=== PATIENT | female | born 1945 | race Caucasian/White ===

== ENCOUNTER 2019-05-18 07:58 | Outpatient (CLI) | payer MEDICARE, SELFPAY ==
[2019-05-18 10:09] LABS: Anion Gap 11.2 mmol/L (3-11); BUN 19 mg/dL (7-18); CO2 27.8 mmol/L (21.0-32.0); CREATININE 1.21 mg/dL (0.55-1.02); Calcium 9.2 mg/dL (8.5-10.1); Chloride 104 mmol/L (98-107); Estimated GFR 43.74 (mL/min/1.73m2); Glucose 109 mg/dL (70-100); Potassium 3.3 mmol/L (3.5-5.1); Sodium 143 mmol/L (136-145); TSH 2.66 uIU/mL (0.358-3.74)
== END 2019-05-18 08:18 ==
PROVIDERS: PCP Family Medicine; Visit Provider Family Medicine
DX: I10 Essential (primary) hypertension (principal); R53.83 Other fatigue
CPT/HCPCS: 36415; 80048; 84443

== ENCOUNTER 2019-06-20 09:59 | Outpatient (CLI) | payer MEDICARE, SELFPAY ==
[2019-06-20 11:39] LABS: CREATININE 1.27 mg/dL (0.55-1.02); Estimated GFR 41.36 (mL/min/1.73m2); Potassium 4.5 mmol/L (3.5-5.1)
== END 2019-06-20 10:19 ==
PROVIDERS: Nurse Practitioner; PCP Family Medicine; Visit Provider Family Medicine
DX: I10 Essential (primary) hypertension (principal)
CPT/HCPCS: 36415; 82565; 84132

== ENCOUNTER 2019-08-27 02:40 | Outpatient (CLI) | payer MEDICARE, SELFPAY ==
[2019-08-27 09:11] LABS: HCT 39.2 % (36.0-46.0); HGB 13.3 g/dL (12.0-15.5); Mean Corp. HGB Concentration 33.9 g/dL (32.0-36.0); Mean Corpuscular Hemoglobin 31.4 pg (27.0-33.0); Mean Corpuscular Volume 92.7 fL (80-95); Mean Platelet Volume 9.1 fL (8.0-11.0); Platelet Count 331 x1000/uL (130-400); RBC 4.23 m/cumm (4.00-5.20); RBC Distribution Width 13.4 % (11.7-14.6)
[2019-08-27 09:58] LABS: CREATININE 1.27 mg/dL (0.55-1.02); Estimated GFR 41.36 (mL/min/1.73m2); Potassium 3.9 mmol/L (3.5-5.1)
== END 2019-08-27 03:00 ==
PROVIDERS: PCP Nurse Practitioner; Visit Provider Nurse Practitioner
DX: I10 Essential (primary) hypertension (principal); R06.02 Shortness of breath
CPT/HCPCS: 36415; 85027; 82565; 84132

== ENCOUNTER 2020-06-12 01:43 | Outpatient (CLI) | payer MEDICARE, SELFPAY ==
[2020-06-12 10:55] LABS: CREATININE 1.24 mg/dL (0.55-1.02); Potassium 4.2 mmol/L (3.5-5.1)
== END 2020-06-12 02:03 ==
PROVIDERS: PCP Nurse Practitioner; Visit Provider Nurse Practitioner
DX: I10 Essential (primary) hypertension (principal)
CPT/HCPCS: 36415; 82565; 84132

== ENCOUNTER 2020-07-01 01:32 | Outpatient (CLI) | payer MEDICARE, SELFPAY ==
--- NOTE | 2020-07-01 08:39 | DI.MAMMO_ITS ---
EXAM: MG MAMMO SCREENING CLINICAL HISTORY: screening,z12.39 TECHNIQUE: Bilateral full field digital CC and MLO mammographic images were obtained with 3D tomosyn thesis and utilizing computer aided detection (CAD). COMPARISON: Available for comparison. FINDINGS: Masses/Architectural Distortion: None seen. Microcalcifications: No suspicious pleomorphic-type are seen. Skin Thickening/Nipple Retraction: None. IMPRESSION: 1. No significant interval change with no specific features of malignancy noted. 2. Unless there is more urgent need, screening mammography is recommended, as per [employer] guidelines. BI-RADS Category 1 - Negative Breast Density - Category B - Scattered areas of fibroglandular density A negative radiographic report should not delay biopsy if a dominant or clinically suspicious mass is present. Up to ten percent of cancers are not identified on mammography. A negative report may reinforce clinical impression. Adenosis and dense breasts may obscure an underlying neoplasm. False positive reports average 6 to 10%. Patient will receive a letter notifying them of these results.
== END 2020-07-01 01:52 ==
PROVIDERS: PCP Nurse Practitioner; Visit Provider Nurse Practitioner
DX: Z12.31 Encounter for screening mammogram for malignant neoplasm of breast (principal); R92.2 Inconclusive mammogram
CPT/HCPCS: 77063; 77067

== ENCOUNTER → 2020-07-04 11:25 | Outpatient (BNVA) | payer MEDICARE, SELFPAY | PROVIDERS: PCP Nurse Practitioner; Referring Provider Nurse Practitioner; Visit Provider Physical Therapy Assistant | DX: Z12.11 Encounter for screening for malignant neoplasm of colon (principal); I10 Essential (primary) hypertension ==

== ENCOUNTER 2020-07-25 08:20 | Day surgery (SDC) | payer MEDICARE, SELFPAY ==
[2020-07-25 08:37] VITALS: BP 152/70; PULSE 54; RESP 16; TEMP 36.5; O2SAT 97
[2020-07-25] MEDS: Lactated Ringers 1,000 ML 80 ML IV (08:56)
--- NOTE | 2020-07-25 09:47 | W.PM.DSUDISC ---
Discharge Plan Disposition Patient Disposition: HOME Condition: Good Discharge Details Reason For Visit: Colonoscopy Attending Provider: Venita Li Primary Care Provider: Dafne Martínez Home Meds and New Rx's Prescriptions: Continued atenolol 50 mg tablet 50 mg PO DAILY Qty: 90 RF: 4 citalopram 20 mg tablet 20 mg PO DAILY Qty: 90 RF: 3 losartan 25 mg tablet 25 mg PO DAILY Qty: 90 RF: 4 Spiriva Respimat 2.5 mcg/actuation mist 2 puff IH QAM Qty: 4 RF: 11 fluticasone propionate [Flonase Allergy Relief] 50 mcg/actuation spray,suspension 2 spray ERLIN DAILY Qty: 54.6 RF: 3 cholecalciferol (vitamin D3) 1,000 UNIT capsule 1,000 unit PO DAILY RF: 0 EMERGEN-C 1 packet PO DAILY RF: 0 albuterol sulfate [ProAir HFA] 8.5 GM HFA aerosol inhaler 2 puff Inhalation Q4H PRN RF: 0 aspirin [Aspir-Low] 81 MG tablet,delayed release (DR/EC) 81 mg PO DAILY Qty: 1 RF: 0 Discharge Instructions Additional Instructions: Findings: Your colonoscopy was normal. Follow up: Further routine screening colonscopy is not needed. If symptoms occur, colonoscopy can be considered. Please call if you develop: fevers >101.5 Nausea or Vomiting Abdominal pain that is not transient DAY SURGERY UNIT POST COLONOSCOPY INSTRUCTIONS 1. Because there will be medication in your system for the next 24 hours, you may feel a little sleepy. Your coordination will be affected. Therefore: a. Do not drive or operate dangerous equipment for 24 hours. b. Do not drink alcohol beverages for 24 hours (not even beer). c. Plan to go home and rest for the day. 2. Generally there are no restrictions on your activity after a day or so has gone by, but you may feel a bit fatigued for a few days. 3 After you arrive home you may have a light meal and return to a normal diet as you can tolerate it without feeling sick to your stomach. 4. After surgery, you may feel pain or discomfort. This should be only transient, but if it persists please contact your doctor. 5. If there are any questions regarding the findings of your procedure, please feel free to contact your doctor. 6. If you are unable to contact your doctor with a problem, contact the hospital at [phone]. 8. Continue all your regular medications unless directed otherwise. I understand the above instructions and have no questions. Signature of Patient or Responsible Adult Escort Date/Time Name of Responsible Adult Escort Signature of Nurse Date/Time Activity:: Activity as Tolerated Diet:: As Tolerated Discharge Orders Discharge Orders: Discharge Order (Routine); Ordered 07/25/20 Ordered By: Venita Li DS: Diagnosis Discharge Diagnosis (1) Normal colonoscopy: Status: Acute
--- NOTE | 2020-07-25 09:48 | W.COLOREPORT ---
Date of service: 07/25/20 Time of Service: 10:32 Colonoscopy Report Date of procedure: 07/25/20 Pre-op diagnosis general: Screening Post-op diagnosis procedure note: other (Normal colon) Procedure: Colonoscopy Surgeon: Venita Li Anesthesia proc note operative: MAC Indications: This patient presents for routine colon screening. Her last colonoscopy in 2006 was normal. No FH colon cancer or symptoms. Procedure Description: The patient was placed in the left Dale position. Propofol was titrated to sedation. Digital rectal examination revealed no abnormalities. The scope was advanced to the cecum without difficulty. The ileocecal valve and appendiceal orifice were clearly identified. The prep was good. The scope was slowly withdrawn over the course of greater than 6 minutes with no abnormalities seen in the ascending, transverse, descending, sigmoid colon or rectum including on retroflexed view. The patient tolerated the procedure well and was stable to recovery. Further routine screening colonoscopy is not needed but colonoscopy can be considered if symptoms indicate.
[2020-07-25 11:09] VITALS: BP 119/61; PULSE 59; RESP 16; TEMP 36.4; O2SAT 97
== END 2020-07-25 11:15 | disposition home or self-care (01) ==
PROVIDERS: PCP Nurse Practitioner; Visit Provider Surgery
PROC: 0DJD8ZZ Inspection of Lower Intestinal Tract, Via Natural or Artificial Opening Endoscopic (ICD-10-PCS; CPT 45378; principal; 2020-07-25 10:00)
DX: Z12.11 Encounter for screening for malignant neoplasm of colon (principal); I10 Essential (primary) hypertension; G47.33 Obstructive sleep apnea (adult) (pediatric)
CPT/HCPCS: G0121; J2001

== ENCOUNTER 2021-06-12 03:13 | Outpatient (CLI) | payer MEDICARE, SELFPAY ==
[2021-06-12 08:54] LABS: CREATININE 1.2 mg/dL (0.55-1.02); Estimated GFR 43.91 (mL/min/1.73m2)
== END 2021-06-12 03:14 | disposition home or self-care (01) ==
LOC: LBO 03:13
PROVIDERS: PCP Nurse Practitioner; Visit Provider Nurse Practitioner
DX: I10 Essential (primary) hypertension (principal)
CPT/HCPCS: 36415; 82565

== ENCOUNTER 2021-07-08 01:07 | Outpatient (CLI) | payer MEDICARE, SELFPAY ==
--- NOTE | 2021-07-08 08:19 | DI.MAMMO_ITS ---
Exam(s) MAMMO SCREENING EXAM: MAMMO SCREENING CLINICAL HISTORY: screening,Z12.39. TECHNIQUE: Bilateral full field digital CC and MLO mammographic images were obtained with 3D tomosyn thesis and utilizing computer aided detection (CAD). COMPARISON: Prior mammograms dating back to 2011, the most recent being June 2020. FINDINGS: There are no new spiculated masses nor malignant appearing microcalcification groups. There is no significant architectural distortion nor skin thickening-retraction. IMPRESSION: No radiographic evidence of malignancy. BI-RADS Category 1 - Negative Breast Density - Category B - Scattered areas of fibroglandular density Breast density Category C or D implies that the patient has dense breast tissue. Dense breast tissue can make it harder to find cancer on a mammogram. Dense breast tissue is also associated with an incr eased risk of breast cancer. This information about the result of the mammogram report was provided to the patient to raise their awareness. Use this report when you speak with the patient about their risks for breast cancer, which includes their family history. At that time, you may recommend additional screening tests (Ultrasoun d or MRI) as these tests may add significant information. A negative radiographic report should not delay biopsy if a dominant or clinically suspicious mass is present. Up to ten percent of cancers are not identified on mammography. A negative report may reinforce clinical impression. Adenosis and dense breasts may obscure an underlying neoplasm. False positive reports average 6 to 10%. Patient will receive a letter notifying them of these results.
== END 2021-07-08 01:27 ==
PROVIDERS: PCP Nurse Practitioner; Visit Provider Nurse Practitioner
DX: Z12.31 Encounter for screening mammogram for malignant neoplasm of breast (principal)
CPT/HCPCS: 77063; 77067

== ENCOUNTER 2022-06-21 04:18 | Outpatient (CLI) | payer MEDICARE, SELFPAY ==
[2022-06-21 17:12] LABS: Anion Gap 11.5 mmol/L (3-11); BUN 17 mg/dL (7-18); CO2 23.5 mmol/L (21.0-32.0); CREATININE 1.4 mg/dL (0.55-1.02); Calcium 9.2 mg/dL (8.5-10.1); Calculated LDL 119 mg/dL (<100); Chloride 104 mmol/L (98-107); Cholesterol 207 mg/dL (<200); Estimated GFR 36.66 (mL/min/1.73m2); Glucose 91 mg/dL (74-106); HDL Cholesterol 60 mg/dL (40-60); Potassium 3.7 mmol/L (3.5-5.1); Sodium 139 mmol/L (136-145); Triglyceride 144 mg/dL (<150)
== END 2022-06-21 04:19 | disposition home or self-care (01) ==
LOC: LBO 04:19
PROVIDERS: PCP Nurse Practitioner; Visit Provider Nurse Practitioner
DX: I10 Essential (primary) hypertension (principal)
CPT/HCPCS: 36415; 80048; 80061

== ENCOUNTER → 2022-08-05 02:13 | Outpatient (CLI) | payer MEDICARE, SELFPAY ==
--- NOTE | 2022-08-05 08:00 | DI.MAMMO_ITS ---
Exam(s) MAMMO SCREENING EXAM: MAMMO SCREENING CLINICAL HISTORY: screening,Z12.39 TECHNIQUE: Bilateral full field digital CC and MLO mammographic images were obtained with 3D tomosyn thesis and utilizing computer aided detection (CAD). COMPARISON: Available for comparison. FINDINGS: Masses/Architectural Distortion: None seen. Microcalcifications: No suspicious pleomorphic-type are seen. Skin Thickening/Nipple Retraction: None. IMPRESSION: 1. No significant interval change with no specific features of malignancy noted. 2. Unless there is more urgent need, screening mammography is recommended, as per [place] [employer] guidelines. BI-RADS Category 1 - Negative Breast Density - Category B - Scattered areas of fibroglandular density Breast density category C or D implies that the patient has dense breast tissue. Dense breast tissue is very common and is not abnormal but dense breast tissue can make it harder to find cancer on a ma mmogram. Also, dense breast tissue may increase their breast cancer risk. This information about the result of the mammogram report was provided to the patient to raise their awareness. Use this report when you speak with the patient about their risks for breast cancer, which includes their family hist ory. At that time, you may recommend for more screening tests (Ultrasound or MRI) as they might be us eful based on their risk. A negative radiographic report should not delay biopsy if a dominant or clinically suspicious mass is present. Up to ten percent of cancers are not identified on mammography. A negative report may reinforce clinical impression. Adenosis and dense breasts may obscure an underlying neoplasm. False positive reports average 6 to 10%. Patient will receive a letter notifying them of these results.
--- NOTE | 2022-08-05 08:00 | DI.DEXA_ITS ---
Exam(s) XR DEXA BONE DENSITY W/WO KARENA EXAM: XR DEXA BONE DENSITY W/WO KARENA CLINICAL HISTORY: SCREENING FOR OSTEOPOROSIS IN POSTMENOPAUSAL WOMAN,Z78.0 TECHNIQUE: COMPARISON: Comparison examination is 09/15/2006. FINDINGS: Lateral Spine Image: Unremarkable. No compression deformities identified. Left hip: Total T-Score: -1.6. This compares to -0.4 on the prior examination. Total Z-Score: 0.2 T- and Z-scores: Findings are consistent with osteopenia. Lumbar Spine: Total T-Score: -2.1. This compares to -1.2 on the prior examination. Total Z-Score: 0.3 T- and Z-scores: Findings are consistent with osteopenia. IMPRESSION: Osteopenia in the lumbar spine and left hip.
== END ==
PROVIDERS: PCP Nurse Practitioner; Visit Provider Nurse Practitioner
DX: Z78.0 Asymptomatic menopausal state (principal); Z12.31 Encounter for screening mammogram for malignant neoplasm of breast; Z13.820 Encounter for screening for osteoporosis; M85.89 Other specified disorders of bone density and structure, multiple sites
CPT/HCPCS: 77063; 77067; 77080

== ENCOUNTER 2023-06-30 02:37 | Outpatient (CLI) | payer MEDICARE, SELFPAY ==
[2023-06-30 09:13] LABS: HCT 38.2 % (36.0-46.0); HGB 12.9 g/dL (11.2-15.7); MCH 31.8 pg (27.0-33.0); MCHC 33.8 % (32.0-36.0); MCV 94 fL (80-95); MPV 9.6 fL (8.0-11.0); Platelet Count 297 10^3/uL (130-400); RBC 4.06 10^6/uL (3.93-5.22); RDW 12.5 % (11.7-14.6); RDW-SD 43.3 fL; WBC 6.42 10^3/uL (4.4-10.8)
[2023-06-30 09:31] LABS: Anion Gap 6.2 mmol/L (3-11); BUN 21 mg/dL (7-18); CO2 29.8 mmol/L (21.0-32.0); CREATININE 1.3 mg/dL (0.55-1.02); Calcium 9.3 mg/dL (8.5-10.1); Calculated LDL 138 mg/dL (<100); Chloride 102 mmol/L (98-107); Cholesterol 215 mg/dL (<200); Estimated GFR 42.62 (mL/min/1.73m2); Glucose 99 mg/dL (74-106); HDL Cholesterol 60 mg/dL (40-60); Potassium 4.3 mmol/L (3.5-5.1); Sodium 138 mmol/L (136-145); Triglyceride 85 mg/dL (<150)
== END 2023-06-30 02:38 | disposition home or self-care (01) ==
LOC: LBO 02:37
PROVIDERS: PCP Nurse Practitioner Family; Visit Provider Nurse Practitioner Family
DX: I10 Essential (primary) hypertension (principal); F32.9 Major depressive disorder, single episode, unspecified; J44.9 Chronic obstructive pulmonary disease, unspecified; G47.33 Obstructive sleep apnea (adult) (pediatric)
CPT/HCPCS: 36415; 80048; 80061; 85027

== ENCOUNTER 2024-04-12 11:06 | Outpatient (CLI) | payer MEDICARE, SELFPAY | END 2024-04-12 11:07 | disposition home or self-care (01) | LOC: DI.CM 11:06 | PROVIDERS: PCP Nurse Practitioner Family; Visit Provider Nurse Practitioner Family | DX: Z01.818 Encounter for other preprocedural examination (principal) | CPT/HCPCS: 93010 ==

== ENCOUNTER 2024-04-19 14:12 | Outpatient (CLI) | payer MEDICARE, SELFPAY ==
--- NOTE | 2024-04-19 14:00 | RT.EKG_ITS ---
APPROVED REPORT Exam: Resting ECG Reason for Exam: Preop, surgery date is 05/03/24 Patient Location: O HR:63 bpm ECG Measurements Heart Rate 63 AXIS IL 172 P 77 QRSd 90 QRS 41 QT 443 T -49 QTc 454 Conclusion Sinus rhythm...normal P axis, V-rate 50- 99 Nonspecific repol abnormality, diffuse leads...ST dep, T flat/neg, ant/lat/inf
== END 2024-04-19 14:13 | disposition home or self-care (01) ==
PROVIDERS: PCP Nurse Practitioner Family; Visit Provider Nurse Practitioner Family
DX: Z01.818 Encounter for other preprocedural examination (principal)
CPT/HCPCS: 93005; 93010

== ENCOUNTER → 2024-04-27 10:29 | Outpatient (BNVA) | payer MEDICARE, SELFPAY | PROVIDERS: PCP Nurse Practitioner Family; Referring Provider Nurse Practitioner Family; Visit Provider Student in an Organized Health Care Education/Training Program | DX: J44.9 Chronic obstructive pulmonary disease, unspecified (principal); R06.09 Other forms of dyspnea; G47.30 Sleep apnea, unspecified | CPT/HCPCS: 99214 ==

== ENCOUNTER → 2024-04-30 04:15 | Outpatient (CLI) | payer MEDICARE, SELFPAY ==
--- NOTE | 2024-04-30 08:30 | DI.US_ITS ---
APPROVED REPORT EXAM: Comprehensive 2D, Doppler, and color-flow Echocardiogram Patient Location: Out-Patient [place] Tester: Flaco Matute RDCS (AE) Indications: Worsening dyspnea, h/o CAD Conclusion Normal left ventricular wall thickness and chamber size. Ejection fraction is 60%. Wall motion is n ormal Normal right ventricular size and function Both atria are mildly enlarged Mildly sclerotic trileaflet aortic valve without stenosis or regurgitation Mildly thickened mitral leaflets, moderate mitral regurgitation Normal tricuspid valve with moderate regurgitation. Estimated right ventricular systolic pressure is 45 mmHg Wall motion Left Ventricle The left ventricle is normal size. The left ventricular systolic function is normal. The left ventric ular ejection fraction is within the normal range. There is normal left ventricular wall thickness. T here is normal LV segmental wall motion. There is no ventricular septal defect visualized. LVEF is 60 %. Right Ventricle The right ventricle is normal size. The right ventricular systolic function is normal. Atria Left atrium is mildly dilated. Right atrium is mildly dilated. The interatrial septum is intact with no evidence for an atrial septal defect. Aortic Valve The aortic valve is mildly sclerotic Aortic valve is trileaflet. There is no aortic valvular stenosis . No aortic regurgitation is present. Mitral Valve The mitral leaflets are mildly thickened No evidence of mitral valve stenosis. Moderate mitral regurg itation Tricuspid Valve The tricuspid valve is normal in structure. There is no tricuspid valve stenosis. Moderate tricuspid regurgitation. Pulmonic Valve The pulmonary valve is normal in structure. There is no pulmonic valvular stenosis. Trace pulmonic re gurgitation. Great Vessels The aortic root is normal in size. The ascending aorta is normal in size. Aortic arch is not well vis ualized. IVC is normal in size and collapses >50% with inspiration. Pericardium Prominent anterior epicardial fat pad is present. 2D Dimensions IVSD d PLAX 0.83 cm F: 0.6-1.0 Ao Root d 2.58 cm F: 2.7 - 3.3 LVPW d PLAX 0.77 cm F: 0.6 - 1.0 Ao Asc Diam d 2.99 cm F: 2.3 - 3.1 LVID d PLAX 4.68 cm F: 3.8 - 5.2 LVDs 3.18 cm F: 2.2 - 3.5 LV EF Teichholz 60.2 % FS 32.06 % LV EDV (Teich) 101.3 mL LV ESV (Teich) 40.3 mL Stroke Vol Index (Teich) 33.52 M-Mode TAPSE 2.46 cm (M/F) >1.7 Auto EF LV EDV A4C 64.9 mL LV EDV A2C 75.8 mL LV EDV BP 69.3 mL LV ESV A4C 26.2 mL LV ESV A2C 30.1 mL LV ESV BP 27.2 mL LVEF(%) A4C 59.7 % LVEF(%) A2C 60.3 % LVEF(%) BP 60.8 % LV SV A4C 38.7 ml LV SV A2C 45.7 ml LV SV BP 42.1 ml LV CO A4C 2.3 L/min LV CO A2C 2.8 L/min LV CO BP 2.5 L/min HR A4C 59.19 BPM HR A2C 60.51 BPM LV EDV Index (BP) LA Volume LA Length A4C 4.3 cm LA Length A2C 5.6 cm LA Area A4C s 13.86 cm2 LA Area A2C s 18.05 cm2 LA Vol A4C A-L 37.81 mL LA Vol A2C A-L 49.38 mL LA Vol Biplane A-L 49.2 mL LA Vol/BSA A4C A-L LA Vol/BSA A2C A-L LA Vol/BSA BP A-L 27.0 mL/m2 LA Vol A4C MOD 36.2 mL LA Vol A2C MOD 48.5 mL LA Vol BP MOD 47.6 mL RA Volume RA Area A4C 11.3 cm2 RA ESV A4C (A-L) 29.6mL RA Vol/BSA A4C A-L RA Length A4C 3.7 cm RA ESV A4C (MOD) 26.6mL LV Diastology MV E' medial 0.058 (>0.07 m/s) MV E Vmax 1.02 (0.4-1.3 m/s) MV E/E' MED 17.56 (<14) MV A Vmax 0.85 (0.4-1.3 m/s) MV E' lateral 0.087 (>0.1 m/s) E/A Ratio 1.2 MV E/E' LAT 11.64 (<14) MV E' Average 0.073 m/s MV E/E'(average) 14.00 Aortic Valve AoV Vmax 1.28 m/s LVOT Vmax 0.85 m/s AoV Peak Grad 6.6 mmHg LVOT Peak Grad 2.9 mmHg AoV Area (Vmax) 1.84 cm2 LVOT VTI 0.224 m AoV VTI 0.341 m LVOT Mean Grad 1.5 mmHg AoV Mean Hayden. 0.86 m/s LVOT SV 61.95 mL AoV Mean Grad 3.4 mmHg LVOT Diam s 1.85 cm AoV Area (VTI) 1.82 cm2 Velocity Ratio 0.66 Mitral Valve MV DT 190 (160-240 msec) MR Vmax 6.02 m/s MV Vmax TIPS 1.20 m/s MR VTI 2.281 m MV Mean Grad 1.6 (<2mmHg) MR Peak Grad 145.1 mmHg MV VTI 0.323 m MR Mean Grad 96.1 mmHg MR PISA Radius 0.51 cm MR Aliasing Velocity 0.36 m/s Pulmonary Valve PV Vmax 0.87 (0.5-1.5 m/s) RVOT Vmax 0.69 m/s PV Peak Grad 3.1 mmHg RVOT Peak Gr. 1.9 mmHg PV Mean Hayden 0.65 m/s RVOT VTI 0.166 m PV Mean Grad 1.9 mmHg RVOT Mean Gr. 1.1 mmHg Tricuspid Valve RA Pressure 3.00 mmHg TR Vmax 3.23 m/s TR Peak Grad 41.7 mmHg RVSP (TR) 44.8 mmHg
== END ==
PROVIDERS: PCP Nurse Practitioner Family; Visit Provider Student in an Organized Health Care Education/Training Program
DX: R06.09 Other forms of dyspnea (principal)
CPT/HCPCS: 93306

== ENCOUNTER → 2024-05-07 01:49 | Outpatient (CLI) | payer MEDICARE, SELFPAY ==
--- NOTE | 2024-05-07 13:13 | NUR.NOTE ---
Nursing Note:Patient presented for nuclear stress test today. BP noted to be 220s/90-100's after multiple BP readings. Patient noted she did not take her losartan or atenolol today. Dr. Barrientos notified and reviewed EKG. Patient instructed to take all medications today and tomorrow as prescribed. S/S to [facility] urgently reviewd with patient who stated understanding. Patient to return tomorrow and to take all medcaitions.
--- NOTE | 2024-05-08 07:12 | DI.NM_ITS ---
APPROVED REPORT Exam: Pharmacologic Patient Location: Out-Patient Room/Bed: Stress Nurse: Mallory Paloom RN Ordering Provider:KASI WALTER, Contact Number: [phone] BMI: 25.29 Baseline Rhythm: Sinus Bradycardia Comment: Resting ST-T abnormalities Indications: Abnormal EKG, Medical History Medical History: COPD, HTN, depression, TRAVIS, OA, [place] Cardiac Medications: Losartan, citalopram, aspirin, albuterol sulfate, atenolol Allergies: Codeine Cardiac Risk Factors: Family hx, HTN, COPD, former smoker Previous Cardiac Procedures: Cardiac cath 2014 w/o intervention Pretest Chest Pain Characteristics: None Exercise History: Indeterminate Physical Disabilities: None Lung Sounds: Clear to auscultation Heart Sounds: Regular Stress Test Details Test: Pharmacologic stress was paired with low level exercise. Reason for pharmacologic stress test: Patient unable to hold beta randy due to HTN. Nuclear Acquisition: Rest Tc-99m/Stress Tc-99m 1 day Rest Isotope: Tc-99m Sestamibi. Dose: 10.5 Date: 05/07/2024 Injection Time: 1055 Stress Isotope: Tc-99m Sestamibi. Dose: 30.0 Date: 05/08/2024 Injection Time: 1306 HR Resting HR Supine: 58 bpm Max Heart Rate (APMHR): 143.936589 bpm Resting HR Standin bpm Target HR (85% APMHR): 121.544046 bpm Max HR Achieved: 88 bpm % of APMHR: 61.54 Recovery HR: 68 bpm BP Resting BP Supine: 122/50 mmHg Resting BP Standin/56 mmHg Max BP: 150/52 mmHg Recovery BP: 132/52 mmHg ECG Resting ECG: Sinus Bradycardia, resting ST-T abnormalities Stress ECG: Sinus Rhythm, nonspecific ST-T abnormalities ST Change: Nondiagnostic low heart rate Recovery ECG: Sinus Rhythm, nonspecific ST-T abnormalities Recovery ST Change: Nondiagnostic low heart rate Clinical Stress Symptoms: Mod SOB Angina Score: None Rate Pressure Product: [id number] Stress ECG Conclusion 1. Resting electrocardiogram showed minor nondiagnostic ST scooping 2. Patient underwent testing using pharmacologic stress with regadenoson 3. Peak heart rate achieved was 62% of predicted for age 4. There was diffuse 1-1/[address] depression noted at the beginning of recovery which gradually r esolved by minute 6 5. See MPI report Stress Test Summary STAGE HR BP SpO2 Symptoms NOTES Supine 58 122/50 93 Standing 63 120/56 1 min post Lexiscan injection 82 150/52 91 Mod SOB 3 min post Lexiscan injection 77 146/60 6 min post Lexiscan injection 68 138/56 93 9 min post Lexiscan injection 68 132/52 All symptoms resolved. MPI Conclusion Myocardial perfusion is normal. There is no ischemia or evidence of prior infarction Ejection fraction is 76% with normal wall motion Radiologist Interpretation Radiologist agrees with [employer] Interpretation. Radiologist Interpretation by: Nolan Fishman MD Interpretation Date/Time: 05/08/2024 18:44:14
== END ==
PROVIDERS: PCP Nurse Practitioner Family; Visit Provider Nurse Practitioner Family
DX: R94.31 Abnormal electrocardiogram [ECG] [EKG] (principal)
CPT/HCPCS: 78452; 93016; 93017

== ENCOUNTER → 2024-05-08 02:41 | Outpatient (CLI) | payer MEDICARE, SELFPAY ==
[2024-05-08] MEDS: Regadenoson 0.4 MG/5 ML SYR IVP (13:20)
== END ==
PROVIDERS: PCP Nurse Practitioner Family; Visit Provider Nurse Practitioner Family
DX: I25.10 Atherosclerotic heart disease of native coronary artery without angina pectoris (principal); J44.9 Chronic obstructive pulmonary disease, unspecified
CPT/HCPCS: J2785

== ENCOUNTER 2024-05-11 01:54 | Outpatient (CLI) | payer MEDICARE, SELFPAY ==
[2024-05-11] MEDS: Levalbuterol HFA 15 GM INH 4 PUFF IH (11:25)
[2024-05-11] MEDS: Inhaler, Assist Device 1 EACH MC (11:25)
--- NOTE | 2024-05-28 15:08 | W.PFT ---
Date of service: 05/11/24 Time of Service: 10:04 Pulmonary Function Test Result Requesting Provider Jeni Benton Indications: COPD Interpretation Spirometry: Mild decrease in FEV1/FVC but normal FEV1 and FVC Lung Volumes: Normal lung volumes Diffusion Capacity: Normal diffusion Impression Mild obstructive ventilatory defect w/ normal lung volumes and diffusion. Flow volume curve suggests obstruction Clinical Correlation therefore is recommended.
--- NOTE | 2024-05-28 15:22 | W.PFT ---
Date of service: 05/11/24 Time of Service: 10:04 Pulmonary Function Test Result Requesting Provider Jeni Benton Indications: COPD Interpretation Spirometry: Abnormal FEV1/FVC Normal FEV1 and FVC Lung Volumes: normal Diffusion Capacity: moderate decrease in diffusion Impression Mild obstructive ventilatory defect w/ reversibility after albuterol. Normal lung volumes Moderate decrease in diffusion, Flow volume curve suggests obstruciton. Clinical Correlation therefore is recommended.
== END 2024-05-11 01:55 | disposition home or self-care (01) ==
LOC: RT 01:54
PROVIDERS: PCP Nurse Practitioner Family; Visit Provider Student in an Organized Health Care Education/Training Program
DX: J44.9 Chronic obstructive pulmonary disease, unspecified (principal)
CPT/HCPCS: 00123; 94060; 94726; 94729

== ENCOUNTER 2024-06-14 09:23 | Outpatient (CLI) | payer MEDICARE, SELFPAY ==
--- NOTE | 2024-06-14 09:15 | RT.EKG_ITS ---
APPROVED REPORT Exam: Resting ECG Reason for Exam: cardiac evaluation Patient Location: O HR:64 bpm ECG Measurements Heart Rate 64 AXIS NE 162 P 67 QRSd 91 QRS 32 QT 417 T 13 QTc 431 Conclusion Sinus rhythm...normal P axis, V-rate 50- [address] depression, diffuse leads...ST <-0.07mV, ant/lat/inf Baseline wander in lead(s) V5
== END 2024-06-14 09:24 | disposition home or self-care (01) ==
LOC: DI.CARD 09:23
PROVIDERS: PCP Nurse Practitioner Family; Visit Provider Internal Medicine Cardiovascular Disease
DX: R06.09 Other forms of dyspnea (principal); I10 Essential (primary) hypertension; I25.10 Atherosclerotic heart disease of native coronary artery without angina pectoris; J44.9 Chronic obstructive pulmonary disease, unspecified
CPT/HCPCS: 93010

== ENCOUNTER → 2024-06-14 11:05 | Outpatient (BNVA) | payer MEDICARE, SELFPAY | PROVIDERS: PCP Nurse Practitioner Family; Referring Provider Nurse Practitioner Family; Visit Provider Internal Medicine Cardiovascular Disease | DX: I25.10 Atherosclerotic heart disease of native coronary artery without angina pectoris (principal); J44.9 Chronic obstructive pulmonary disease, unspecified; R94.31 Abnormal electrocardiogram [ECG] [EKG] | CPT/HCPCS: 93005; 99214 ==

== ENCOUNTER 2024-06-27 02:50 | Outpatient (CLI) | payer MEDICARE, SELFPAY ==
[2024-06-27 12:44] LABS: HCT 39.8 % (36.0-46.0); HGB 12.9 g/dL (11.2-15.7); MCHC 32.4 % (32.0-36.0); MCV 96 fL (80-95); MPV 9.8 fL (8.0-11.0); Platelet Count 301 10^3/uL (130-400); RBC 4.16 10^6/uL (3.93-5.22); RDW 12.9 % (11.7-14.6); WBC 5.87 10^3/uL (4.4-10.8)
[2024-06-27 13:39] LABS: Anion Gap 7.9 mmol/L (3-11); BUN 14 mg/dL (7-18); CO2 28.1 mmol/L (21.0-32.0); CREATININE 1.1 mg/dL (0.55-1.02); Calcium 9.4 mg/dL (8.5-10.1); Calculated LDL 124 mg/dL (<100); Chloride 105 mmol/L (98-107); Cholesterol 207 mg/dL (<200); Estimated GFR 51.75 (mL/min/1.73m2); Glucose 93 mg/dL (74-106); HDL Cholesterol 58 mg/dL (40-60); Sodium 141 mmol/L (136-145); Triglyceride 129 mg/dL (<150)
[2024-06-27 13:54] LABS: Iron 75 ug/dL (50-170); Total Iron Binding Capacity 291 ug/dL (250-450); Transferrin Sat 26 % (15-50)
[2024-06-28 12:19] LABS: Hemoglobin A1C 5.5 % (<5.7)
== END 2024-06-27 02:51 | disposition home or self-care (01) ==
LOC: LOS 03:56
PROVIDERS: PCP Nurse Practitioner Family; Referring Provider Nurse Practitioner Family; Visit Provider Nurse Practitioner Family
DX: J44.9 Chronic obstructive pulmonary disease, unspecified; J43.1 Panlobular emphysema; R06.09 Other forms of dyspnea; I10 Essential (primary) hypertension; I25.10 Atherosclerotic heart disease of native coronary artery without angina pectoris; F32.9 Major depressive disorder, single episode, unspecified; R53.83 Other fatigue; Z00.00 Encounter for general adult medical examination without abnormal findings; R73.09 Other abnormal glucose
CPT/HCPCS: 36415; 80048; 80061; 85027; 83036; 83540; 83550

== ENCOUNTER → 2024-06-28 10:09 | Outpatient (BNVA) | payer MEDICARE, SELFPAY | PROVIDERS: PCP Nurse Practitioner Family; Referring Provider Nurse Practitioner Family; Visit Provider Physician Assistant Surgical | DX: J44.9 Chronic obstructive pulmonary disease, unspecified (principal); G47.30 Sleep apnea, unspecified; R06.09 Other forms of dyspnea | CPT/HCPCS: 99214 ==

== ENCOUNTER 2024-06-29 00:20 | Outpatient (CLI) | payer MEDICARE, SELFPAY ==
--- NOTE | 2024-06-29 15:41 | DI.MAMMO_ITS ---
Exam(s) MAMMO SCREENING EXAM: MAMMO SCREENING CLINICAL HISTORY: screening,z12.39,family h/o breast ca. TECHNIQUE: Bilateral full field digital CC and MLO mammographic images were obtained with 3D tomosyn thesis and utilizing computer aided detection (CAD). COMPARISON: Prior mammograms were reviewed. FINDINGS: There has been no significant change in the appearance and distribution of the fibroglandular tissue. There are no new spiculated masses nor malignant appearing microcalcification groups. There is no significant architectural distortion nor skin thickening-retraction. IMPRESSION: No radiographic evidence of malignancy. BI-RADS Category 1 - Negative Breast Density - Category B - Scattered areas of fibroglandular density Breast density Category C or D implies that the patient has dense breast tissue. Dense breast tissue can make it harder to find cancer on a mammogram. Dense breast tissue is also associated with an incr eased risk of breast cancer. This information about the result of the mammogram report was provided to the patient to raise their awareness. Use this report when you speak with the patient about their risks for breast cancer, which includes their family history. At that time, you may recommend additional screening tests (Ultrasoun d or MRI) as these tests may add significant information. A negative radiographic report should not delay biopsy if a dominant or clinically suspicious mass is present. Up to ten percent of cancers are not identified on mammography. A negative report may reinforce clinical impression. Adenosis and dense breasts may obscure an underlying neoplasm. False positive reports average 6 to 10%. Patient will receive a letter notifying them of these results.
== END 2024-06-29 00:40 ==
LOC: DI 00:21
PROVIDERS: PCP Nurse Practitioner Family; Visit Provider Nurse Practitioner Family
DX: Z12.31 Encounter for screening mammogram for malignant neoplasm of breast (principal); Z80.3 Family history of malignant neoplasm of breast
CPT/HCPCS: 77063; 77067

== ENCOUNTER → 2024-08-21 15:09 | Outpatient (BNVA) | payer MEDICARE, SELFPAY | PROVIDERS: PCP Nurse Practitioner Family; Referring Provider Nurse Practitioner Family; Visit Provider Physician Assistant Surgical | DX: J44.9 Chronic obstructive pulmonary disease, unspecified (principal); R06.09 Other forms of dyspnea; G47.30 Sleep apnea, unspecified | CPT/HCPCS: 99214 ==

== ENCOUNTER 2024-08-24 03:25 | Outpatient (CLI) | payer MEDICARE, SELFPAY | END 2024-08-24 03:26 | disposition home or self-care (01) | LOC: RT 03:26 | PROVIDERS: PCP Nurse Practitioner Family; Visit Provider Physician Assistant Surgical | DX: J44.89 Other specified chronic obstructive pulmonary disease (principal); J44.9 Chronic obstructive pulmonary disease, unspecified | CPT/HCPCS: 94618 ==

== ENCOUNTER → 2025-04-08 14:13 | Outpatient (BNVA) | payer MEDICARE, SELFPAY | PROVIDERS: PCP Nurse Practitioner Family; Referring Provider Nurse Practitioner Family; Visit Provider Physician Assistant Surgical | DX: J44.9 Chronic obstructive pulmonary disease, unspecified (principal); G47.30 Sleep apnea, unspecified; R06.09 Other forms of dyspnea; I25.10 Atherosclerotic heart disease of native coronary artery without angina pectoris; R53.83 Other fatigue; I27.20 Pulmonary hypertension, unspecified | CPT/HCPCS: 99214 ==

== ENCOUNTER 2025-06-03 15:44 | Outpatient (REF) | payer MEDICARE, SELFPAY ==
[2025-06-03 21:47] LABS: Abs Immature Grans 0.02 10^3/uL (0.0-0.06); HCT 35.5 % (36.0-46.0); HGB 12.0 g/dL (11.2-15.7); Immature Grans % 0.9 %; MCH 30.2 pg (27.0-33.0); MCHC 33.8 % (32.0-36.0); MCV 89 fL (80-95); MPV 11.0 fL (8.0-11.0); Platelet Count 102 10^3/uL (130-400); RBC 3.97 10^6/uL (3.93-5.22); RDW 12.8 % (11.7-14.6); RDW-SD 42.1 fL; WBC 2.32 10^3/uL (4.4-10.8)
[2025-06-03 22:03] LABS: ALT 39 U/L (14-59); AST 57 U/L (15-37); Albumin 3.4 g/dL (3.4-5.0); Alkaline Phosphatase 92 U/L (46-116); Anion Gap 7.7 mmol/L (3-11); BUN 27 mg/dL (7-18); Bilirubin, Total 0.5 mg/dL (0.2-1.0); CO2 27.3 mmol/L (21.0-32.0); Calcium 8.8 mg/dL (8.5-10.1); Chloride 97 mmol/L (98-107); Estimated GFR 38.51 (mL/min/1.73m2); Glucose 99 mg/dL (74-106); Potassium 3.6 mmol/L (3.5-5.1); Sodium 132 mmol/L (136-145); TSH (W/Ref FT4) 0.61 uIU/mL (0.36-3.74); Total Protein 6.8 g/dL (6.4-8.2)
[2025-06-03 22:05] LABS: Hemoglobin A1C 5.8 % (<5.7)
[2025-06-05 10:44] LABS: Lyme Ab w Rflx to Lyme Confirm Negative (Negative)
[2025-06-07 15:27] LABS: B. miyamotoi PCR Negative (Negative); Babesia divergens/MO-1 Negative (Negative); Ehrlichia muris eauclairensis Negative (Negative)
== END 2025-06-03 15:45 | disposition home or self-care (01) ==
LOC: LBN 15:44
PROVIDERS: PCP Nurse Practitioner Family; Visit Provider Nurse Practitioner Family
DX: R42 Dizziness and giddiness (principal); R51.9 Headache, unspecified; R73.01 Impaired fasting glucose; R00.0 Tachycardia, unspecified
CPT/HCPCS: 80053; 87798; 83036; 84443; 85025; 86618

== ENCOUNTER 2025-06-09 09:37 | Emergency (ER) | payer MEDICARE, SELFPAY ==
[2025-06-09] VITALS (24 sets, daily range): BP systolic 169–205; BP diastolic 52–73; PULSE 62–77; RESP 8–28; TEMP 35.9; O2SAT 92–98
[2025-06-09] MEDS: methylPREDNISolone SUCC 125 MG VIAL IVP (10:32)
[2025-06-09] MEDS: Famotidine 20 MG/2 ML VIAL IVP (10:32)
[2025-06-09] MEDS: diphenhydrAMINE 50 MG/ML VIAL 25 MG IVP (10:32)
--- NOTE | 2025-06-09 10:33 | W.ED.GENAD ---
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], Hypertension Primary Care Provider: Shadia Garces ED Provider: Sushma Maradiaga Home Meds and New Rx's Prescriptions: New rifampin 300 mg capsule 300 mg PO Q12H 9 Days Qty: 18 0RF No Action Stiolto Respimat 2.5-2.5 mcg/actuation mist See Rx Instructions .ROUTE .COMPLEX Qty: 12 11RF Dose Instruction: USE 2 INHALATIONS BY MOUTH DAILY FOR COPD Rx Instructions: USE 2 INHALATIONS BY MOUTH DAILY FOR COPD albuterol sulfate 90 mcg/actuation HFA aerosol inhaler 2 puff Inhalation Q4H PRN Qty: 8.5 2RF fluticasone propionate [Flonase Allergy Relief] 50 mcg/actuation spray,suspension 2 spray ERLIN DAILY PRN (Reason: allergy symptoms) Rx Instructions: administer into each nostril multivitamin Tablet 1 tab PO DAILY furosemide 20 mg tablet 20 mg PO DAILY Qty: 30 6RF cholecalciferol (vitamin D3) 1,000 UNIT capsule 1,000 unit PO DAILY EMERGEN-C 1 packet PO DAILY aspirin [Aspir-Low] 81 MG tablet,delayed release (DR/EC) 81 mg PO DAILY Qty: 1 triamcinolone acetonide 0.5 % cream 1 applic topical BID PRN (Reason: lichen sclerosus) 90 Days Qty: 15 3RF Rx Instructions: lichen sclerosus, [facility] citalopram 40 mg tablet 40 mg PO DAILY Qty: 90 4RF famotidine [Pepcid] 20 mg tablet 20 mg PO DAILY Qty: 90 3RF doxycycline hyclate 100 mg capsule 100 mg PO BID 10 Days Qty: 20 0RF losartan 25 mg tablet 12.5 mg PO DAILY Discharge Instructions Instructions: Allergic Reaction ED Additional Instructions: You were seen in the emergency department today for evaluation of an allergic reaction to a medication. In our department you do full physical examination performed, received medications for your allergy and had excellent improvement in your symptoms. This was likely due to the doxycycline that you have been taking for your anaplasmosis. You need to stop this medication, and I have started you on an alternative agent called rifampin. You need to take this medication twice per day for the next 10 days. You received your first days worth of medication here in the emergency department and the rest has been sent to your pharmacy. Please take all this medication until it is gone, even if you start to feel better. Please follow-up with your primary care provider in the next few days to discuss this visit and any symptoms that change, worsen, or persist. Thank you for allowing us to be part of your care. HPI General Mode of arrival: ambulatory. Date/Time Provider Initiated Documentation: 06/09/25 09:38. Limitations to Documentation: no limitations. Information obtained by: patient, family and old records reviewed. HPI Narrative: This is a 79-year-old female patient with a past medical history significant for COPD, pulmonary hypertension, CAD, TRAVIS, and a recent diagnosis of anaplasmosis, presenting for evaluation of allergic reaction. The patient was started on doxycycline and has taken 3 doses of this medication. This morning she developed swelling in her lip and an itchy rash. She did not have any associated shortness of breath, throat swelling, or nausea. She has a history of allergy to codeine but has never experienced anaphylaxis before. She cannot think of any other new exposures such as foods, soaps, etc. She did not take any medications prior to arrival at our facility. Related Data Home Medications ?Medication ?Instructions ?Recorded ?Confirmed Emergen-C 1 packet PO DAILY 04/11/13 06/09/25 cholecalciferol (vitamin D3) 25 1,000 unit PO DAILY 04/11/13 06/09/25 mcg (1,000 unit) capsule aspirin 81 mg tablet,delayed 81 mg PO DAILY ##1 04/23/16 06/09/25 release (Aspir-Low) fluticasone propionate 50 2 spray intranasal DAILY PRN 06/17/22 06/09/25 mcg/actuation nasal allergy symptoms spray,suspension (Flonase Allergy Relief) multivitamin 1 tab PO DAILY 04/27/24 06/09/25 albuterol sulfate 90 mcg/actuation 2 puff inhalation Q4H PRN #8.5 08/21/24 06/09/25 aerosol inhaler grams tiotropium 2.5 mcg-olodaterol 2.5 See Rx Instructions .Route 08/21/24 06/09/25 mcg/actuation mist for inhalation .COMPLEX #12 grams (Stiolto Respimat) triamcinolone acetonide 0.5 % 1 applic topical BID PRN lichen 11/02/24 06/09/25 topical cream sclerosus 90 days #15 grams citalopram 40 mg tablet 40 mg PO DAILY #90 tabs 11/05/24 06/09/25 furosemide 20 mg tablet 20 mg PO DAILY #30 tabs 04/08/25 06/09/25 famotidine 20 mg tablet (Pepcid) 20 mg PO DAILY #90 tabs 05/01/25 06/09/25 doxycycline hyclate 100 mg capsule 100 mg PO BID 10 days #20 caps 06/07/25 06/09/25 losartan 25 mg tablet 12.5 mg PO DAILY 06/09/25 06/09/25 rifampin 300 mg capsule 300 mg PO Q12H 9 days #18 caps 06/09/25 Previous Rx's ?Medication ?Instructions ?Recorded albuterol sulfate 90 mcg/actuation 2 puff inhalation Q4H PRN #8.5 08/21/24 aerosol inhaler grams tiotropium 2.5 mcg-olodaterol 2.5 See Rx Instructions .Route 08/21/24 mcg/actuation mist for inhalation .COMPLEX #12 grams (Stiolto Respimat) triamcinolone acetonide 0.5 % 1 applic topical BID PRN lichen 11/02/24 topical cream sclerosus 90 days #15 grams citalopram 40 mg tablet 40 mg PO DAILY #90 tabs 11/05/24 furosemide 20 mg tablet 20 mg PO DAILY #30 tabs 04/08/25 famotidine 20 mg tablet (Pepcid) 20 mg PO DAILY #90 tabs 05/01/25 doxycycline hyclate 100 mg capsule 100 mg PO BID 10 days #20 caps 06/07/25 rifampin 300 mg capsule 300 mg PO Q12H 9 days #18 caps 06/09/25 Allergies Allergy/AdvReac Type Severity Reaction Status Date / Time doxycycline Allergy Intermediate Hives Verified 06/09/25 12:01 codeine AdvReac Severe HALLUCINATI Verified 06/09/25 09:44 ONS General Stated Complaint: Allergic REYNA: 3 Exam Narrative Exam Narrative: Gen: awake and alert, in no apparent distress. Appears well nourished. HEENT: PERRL, a small amount of swelling is appreciated to the right lower lip, no swelling of the tongue or posterior pharynx is appreciated. Neck: Supple, full range of motion, no observable masses Lungs: No increased work of breathing, lung sounds clear and equal bilaterally without wheezes, rhonchi, or rales. No stridor auscultated CV: Heart with regular rate and rhythm, no murmurs auscultated. Strong and symmetrical radial pulses. Abdomen: Soft, nondistended, non-tender to palpation. No rigidity, rebound tenderness, or guarding. MSK: No joint swelling, no redness. Full ROM without limitation, no external traumatic findings. Skin: The patient has a fine red lacy rash, itchy, to the bilateral thighs Neuro: Cranial nerves II-XII intact and symmetrical bilaterally. 5/5 strength in all muscle groups x4 extremities. No sensory deficits. Ambulates with steady gait. Psych: Appropriate for situation. Course Vital Signs Vital signs: Vital Signs Temperature 35.9 C L 06/09/25 09:41 Pulse 77 06/09/25 09:41 Respiratory Rate 18 06/09/25 09:41 Blood Pressure 169/73 H 06/09/25 09:41 Pulse Oximetry 92 06/09/25 09:41 Temperature 35.9 C L 06/09/25 09:41 Temperature Source Tympanic 06/09/25 09:41 Pulse 77 06/09/25 09:41 Respiratory Rate 18 06/09/25 09:41 Respiratory Effort Normal 06/09/25 10:23 Blood Pressure 169/73 H 06/09/25 09:41 Pulse Oximetry 92 06/09/25 09:41 Medical Decision Making This is a 79-year-old female patient presenting for evaluation of lip swelling and skin rash. My differential includes but is not limited to allergic reaction, most specifically to doxycycline given the recent initiation. I am reassured by the lack of airway involvement or GI involvement against anaphylaxis. She has no hypotension to suggest anaphylactic shock. I considered drug reaction such as dress, skin rash is less consistent with SJS/TN. We will provide the patient with Benadryl, Solu-Medrol and Pepcid. I will hold off on epinephrine at this time given her lack of airway involvement. We will obtain basic laboratory studies to include CBC, CMP, and magnesium. -I reviewed the patient's laboratory studies, and note no leukocytosis or leukopenia, anemia, or thrombocytopenia. Her platelet count is has in fact recovered from labs obtained a few days ago. Her metabolic panel shows no electrolyte derangements or kidney injury, she does have a mild transaminitis which is most likely due to her known anaplasmosis. On reevaluation after medications the patient has had complete resolution of her hives and her lip swelling has improved significantly. She remains without throat or tongue swelling, shortness of breath, and I am reassured against anaphylaxis. I will transition the patient to rifampin for an alternative anaplasmosis agent and added doxycycline to her allergy list. She will be provided with a dose of medication and monitored to ensure that she does not develop symptoms of allergy. - After observation the patient remains without recurrence of allergic symptoms, tolerated the medication well and I feel that this will be an appropriate alternative agent for coverage of her anaplasmosis. I counseled her to reach out to her primary care provider for reassessment and to discuss this visit and any symptoms that change, worsen, or persist. At this time, the patient has had a full medical evaluation and is safe for discharge to home. They are hemodynamically stable, ambulatory, and tolerating PO. They are understanding of the follow-up plan and return precautions. They left our facility without incident. 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] (Acute 06/07/25) Dizziness (Acute) Pulmonary hypertension (Acute) Fatigue (Acute) Coronary artery disease (Chronic) COPD (chronic obstructive pulmonary disease) (Chronic) Hypertension (Chronic) [place] (dyspnea on exertion) (Chronic) Depressive disorder (Acute 10/10/07) Lichen sclerosus et atrophicus (Acute 09/28/13) unable to tolerate clobetasol, using triamcinalone Obstructive sleep apnea syndrome, mild (Acute 06/21/16) 06/21/16-[facility]; MILD TO MOD Panlobular emphysema (Acute 09/02/15) seen at [facility], now managed by PCP Alcohol use disorder (Acute) 2 glasses of wine Osteoarthritis (Chronic) Medical History COPD (chronic obstructive pulmonary disease) Sleep apnea Surgical History History of cataract removal with insertion of prosthetic lens Rotator Cuff Repair Open Carpal Tunnel release Meniscectomy (05/11/12) Extraction of cataract H/O surgical procedure a. cataracts b. meniscectomy 04/2012 c. carpal tunnel release d. rotator cuff surgery Family History Mother , 76 Essential hypertension Lymphoma Stroke Heart disease Hypertension Father , 91 Essential hypertension Heart disease Brother Essential hypertension Heart disease Maternal Grandfather , 57 MS (multiple sclerosis) Paternal Grandfather , 70+ Essential hypertension Heart disease Maternal Grandmother , 82 Essential hypertension Heart disease Hyperlipidemia Uterine cancer Paternal Grandmother , 80+ Essential hypertension Heart disease Stroke Son Essential hypertension Depression Social History (Updated 06/28/24 @ 15:08 by Jory Rivera) Smoking/Tobacco Use Status: Former Tobacco Use Quit Date: 11/21/96 Second Hand Exposure: No Smoking risk assessment performed?: Yes Alcohol Intake: current Alcohol Intake frequency: holidays/special occasions only Alcohol type: wine and hard liquor Drug use: Never Substance use type: does not use Caregiver/Support person: No Household members: spouse Housing: house Communication Needs: None Do you need help understanding health information?: Never Pets and animals: Yes Pets and animals: dog(s) Sexually active: Yes Do you think of yourself as: straight/heterosexual Current gender identity: female What is your relationship status?: How often do you talk on the phone with friends or family?: three or more times per week How often do you get together with friends or relatives?: decline to answer How often do you attend spiritism or latter day services?: decline to answer Do you belong to any clubs or organized social groups?: yes Panel score (0-1 are the most socially isolated patients): 3 Duration: decline to answer Frequency: 1-2 times per week Sheron/Jewish: Confucianism Special sheron needs: No Seatbelt use: always Helmet use: Yes Helmet use: sometimes Drive intox or ride w/intox local company refrigerated truck driver: No Do you feel safe at home: Yes Do you feel safe in your relationship?: Yes
[2025-06-09 10:42] LABS: HCT 34.0 % (36.0-46.0); HGB 11.2 g/dL (11.2-15.7); MCH 29.6 pg (27.0-33.0); MCHC 32.9 % (32.0-36.0); MCV 90 fL (80-95); MPV 9.7 fL (8.0-11.0); Platelet Count 327 10^3/uL (130-400); RBC 3.79 10^6/uL (3.93-5.22); RDW 12.9 % (11.7-14.6); RDW-SD 42.3 fL; WBC 7.93 10^3/uL (4.4-10.8)
[2025-06-09 11:19] LABS: ALT 65 U/L (14-59); AST 43 U/L (15-37); Albumin 3.3 g/dL (3.4-5.0); Alkaline Phosphatase 97 U/L (46-116); Anion Gap 9.2 mmol/L (3-11); BUN 13 mg/dL (7-18); Bilirubin, Total 0.5 mg/dL (0.2-1.0); CO2 26.8 mmol/L (21.0-32.0); Calcium 9.2 mg/dL (8.5-10.1); Chloride 105 mmol/L (98-107); Estimated GFR 65.44 (mL/min/1.73m2); Glucose 99 mg/dL (74-106); Magnesium 2.1 mg/dL (1.8-2.4); Potassium 4.0 mmol/L (3.5-5.1); Sodium 141 mmol/L (136-145); Total Protein 7.3 g/dL (6.4-8.2)
[2025-06-09 11:40] LABS: Abs Immature Grans 0.00 10^3/uL (0.0-0.06); Immature Grans % 0.0 %; RBC Morphology Normal
[2025-06-09] MEDS: rifAMPin 300 MG CAP PO (12:57)
[2025-06-09] MEDS: rifAMPin 300 MG CAP 600 MG PO (12:57)
== END 2025-06-09 13:35 | disposition home or self-care (01) ==
PROVIDERS: Emergency Provider Emergency Medicine; PCP Nurse Practitioner Family
DX: L27.1 Localized skin eruption due to drugs and medicaments taken internally (principal); T36.4X5A Adverse effect of tetracyclines, initial encounter; A79.82 Anaplasmosis [A. phagocytophilum]; J44.9 Chronic obstructive pulmonary disease, unspecified; I10 Essential (primary) hypertension; Z79.82 Long term (current) use of aspirin; Z87.891 Personal history of nicotine dependence
CPT/HCPCS: 36415; 80053; 96374; 96375; 99284; 83735; 85025; 99283; J1200; J2919

== ENCOUNTER → 2025-07-10 10:18 | Outpatient (BNVA) | payer MEDICARE, SELFPAY | PROVIDERS: PCP Nurse Practitioner Family; Referring Provider Nurse Practitioner Family; Visit Provider Physician Assistant Surgical | DX: J44.9 Chronic obstructive pulmonary disease, unspecified (principal); Z87.891 Personal history of nicotine dependence; G47.30 Sleep apnea, unspecified; R06.09 Other forms of dyspnea; I25.10 Atherosclerotic heart disease of native coronary artery without angina pectoris; R53.83 Other fatigue; I27.20 Pulmonary hypertension, unspecified | CPT/HCPCS: 99214 ==

== ENCOUNTER 2025-07-29 10:01 | Outpatient (CLI) | payer MEDICARE, SELFPAY ==
[2025-07-29 15:13] LABS: Anion Gap 10.0 mmol/L (3-11); BUN 16 mg/dL (7-18); CO2 28.0 mmol/L (21.0-32.0); Calcium 9.6 mg/dL (8.5-10.1); Chloride 101 mmol/L (98-107); Estimated GFR 57.66 (mL/min/1.73m2); Glucose 94 mg/dL (74-106); Potassium 4.1 mmol/L (3.5-5.1); Sodium 139 mmol/L (136-145)
== END 2025-07-29 10:02 | disposition home or self-care (01) ==
LOC: LOS 10:01 → LBN 14:36
PROVIDERS: PCP Nurse Practitioner Family; Referring Provider Family Medicine; Visit Provider Family Medicine
DX: I10 Essential (primary) hypertension (principal)
CPT/HCPCS: 80048

== ENCOUNTER 2025-08-26 02:28 | Outpatient (CLI) | payer MEDICARE, SELFPAY ==
--- NOTE | 2025-08-26 07:00 | DI.MAMMO_ITS ---
Exam(s) MAMMO SCREENING EXAM: MAMMO SCREENING CLINICAL HISTORY: screening Z12.39 TECHNIQUE: Bilateral full field digital CC and MLO mammographic images were obtained with 3D tomosynthesis and utilizing computer aided detection (CAD). COMPARISON: Comparison is made with prior examinations. FINDINGS: Masses/Architectural Distortion: No suspicious masses or areas of architectural distortion are present. Microcalcifications: No suspicious pleomorphic-type are seen. Skin Thickening/Nipple Retraction: None. IMPRESSION: 1. No significant interval change with no specific features of malignancy noted. 2. Unless there is more urgent need, screening mammography is recommended, as per [employer] guidelines. BI-RADS Category 1 - Negative Breast Density - Category B - There are scattered areas of fibroglandular density. Breast density Category C or D implies that the patient has dense breast tissue. Dense breast tissue can make it harder to find cancer on a mammogram. Dense breast tissue is also associated with an increased risk of breast cancer. This information about the result of the mammogram report was provided to the patient to raise their awareness. Use this report when you speak with the patient about their risks for breast cancer, which includes their family history. At that time, you may recommend additional screening tests (Ultrasound or MRI) as these tests may add significant information. A negative radiographic report should not delay biopsy if a dominant or clinically suspicious mass is present. Up to ten percent of cancers are not identified on mammography. A negative report may reinforce clinical impression. Adenosis and dense breasts may obscure an underlying neoplasm. False positive reports average 6 to 10%. Patient will receive a letter notifying them of these results.
== END 2025-08-26 02:48 ==
LOC: DI 02:28
PROVIDERS: PCP Nurse Practitioner Family; Visit Provider Nurse Practitioner Family
DX: Z12.31 Encounter for screening mammogram for malignant neoplasm of breast (principal)
CPT/HCPCS: 77063; 77067